=== PATIENT | female | born 1975 | race Caucasian/White ===

== ENCOUNTER 2016-09-04 07:39 | Emergency (ER) | payer OTHER, BC ==
[~2016-09-04] VITALS: Ht 160 cm; Wt 88.5 kg
[~2016-09-04 07:39] MED LIST: BUPR-79 PO; BUPR1SUB SL; IBUP600T44 PO; LMC/150 PO; NAPR1TAB9 PO; POLY335019 PO; PRLSR20 PO
[2016-09-04 07:40] VITALS: TEMP 36.7; Ht 160 cm; Wt 88.5 kg
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
[2016-09-04] MEDS ORDERED: BUPR1SUB23 SL (08:28)
[2016-09-04] MEDS ORDERED: LAMO1TAB21 PO (08:28)
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
[2016-09-04] MEDS ORDERED: META1TAB22 PO (09:16)
[2016-09-04 09:26] VITALS: BP 145/88; PULSE 74; O2SAT 98
== END 2016-09-04 09:28 | disposition home or self-care (01) ==
LOC: C.EDB 07:40
DX: S46.811A Strain of other muscles, fascia and tendons at shoulder and upper arm level, right arm, initial encounter (principal); S39.012A Strain of muscle, fascia and tendon of lower back, initial encounter; V89.2XXA Person injured in unspecified motor-vehicle accident, traffic, initial encounter; K21.9 Gastro-esophageal reflux disease without esophagitis; F17.200 Nicotine dependence, unspecified, uncomplicated; K59.00 Constipation, unspecified

== ENCOUNTER → 2016-09-26 | Outpatient (CLI) | payer BC ==
[~2016-09-26] MED LIST changes: -BUPR1SUB SL; +BUPR1SUB23 SL; +LAMO1TAB21 PO; -LMC/150 PO; -NAPR1TAB9 PO
--- NOTE | 2016-09-26 17:10 | MAMMOGRAPHY REPORT ---
BILATERAL DIGITAL DIAGNOSTIC MAMMOGRAM TOMOSYNTHESIS WITH CAD AND TARGETED RIGHT ULTRASOUND: 09/27/19 17 CLINICAL HISTORY: 41-year-old woman presents for follow-up of a probably benign circumscribed 5 x 4 mm mass in the medial anterior right breast. Also time of annual bilateral screening mammogram. TECHNIQUE: Bilateral breast tomosynthesis in addition to standard 2D mammography was performed. Curr ent study was also evaluated with a Computer Aided Detection (CAD) system. COMPARISON: Comparison is made to exams dated: 03/21/2016 ultrasound, 03/21/2016 mammogram, 09/20/19 16 ultrasound, 09/09/2015 mammogram, 05/30/2009 consultation, and 05/30/2009 ultrasound - [facility]. BREAST COMPOSITION: There are scattered areas of fibroglandular density in both breasts. FINDINGS: There are a few stable benign-appearing calcifications in the right breast. There is pers istence of an oval circumscribed 4 x 5 mm mass in the medial anterior right breast, best seen on the CC view (CC tomosynthesis slice 22). This has not significantly changed in size given slight diffe rences in positioning dating back to 09/09/2015. No other suspicious mass, architectural distortion or cluster of microcalcifications is seen bilaterally. Repeat targeted ultrasound was performed throughout the medial right breast. In the 3:00 axis, 1 cm from the nipple, there is a round anechoic solid versus cystic masses measuring 1.4 x 1.6 x 2.0 mm. This is unchanged in size compared to the prior ultrasounds. In the 4:00 right breast, 1 cm from the nipple, there is an oval parallel circumscribed anechoic cystic appearing mass measuring 3.8 x 4 .3 x 1.4 mm. This likely correlates with the mammographic mass and is benign in appearance. No oth er suspicious solid or cystic mass is identified in the medial right breast on ultrasound. IMPRESSION: ACR-BI-RADS CATEGORY 3: PROBABLY BENIGN, TARGETED ULTRASOUND ACR-BI-RADS CATEGORY 3: AL OBABLY BENIGN There is a stable circumscribed oval benign appearing 4 x 5 mm mass in the medial anterior right june ast, that is unchanged mammographically for 1 year and a probable cystic sonographic correlate in th e 4:00 right breast, 1 cm from the nipple. However, as 2 years of stability are needed to confirm b enignity, another 12 month follow-up diagnostic mammogram with possible ultrasound is recommended. Annual left mammography is also due at that time. These results and recommendations were discussed with the patient at the time of the exam. Approximately 10% of breast cancers are not detected with mammography. A negative mammographic repor t should not delay biopsy if a clinically suggestive mass is present. Erum Villaseñor M.D. ay/:09/26/2016 15:19:51 Icebox Man: Karol SIMS(Baylee)(M), [facility] letter sent: Follow Up Recommended 3 BI-RADS Code: ACR-BI-RADS Category 3: Probably Benign Ultrasound BI-RADS: ACR-BI-RADS Category 3: P robably Benign
== END | disposition home or self-care (01) ==
LOC: C.MAMM 12:49
PROVIDERS: ATTEND Nurse Practitioner
DX: N63 Unspecified lump in breast (principal)